=== PATIENT | female | born 1950 | race Caucasian/White ===

== ENCOUNTER 2024-04-27 09:00 | Emergency (ER) | payer MEDICARE, OTHER ==
[~2024-04-27] VITALS: Ht 170.2 cm; Wt 64.9 kg
[~2024-04-27 09:00] MED LIST: LEVSOD100 PO
[2024-04-27 09:57] VITALS: BP 156/80
== END 2024-04-27 12:16 | disposition home or self-care (01) ==
LOC: ER 09:00
DX: S52.501A Unspecified fracture of the lower end of right radius, initial encounter for closed fracture (principal); S52.611A Displaced fracture of right ulna styloid process, initial encounter for closed fracture; W18.30XA Fall on same level, unspecified, initial encounter
CPT/HCPCS: 73130

== ENCOUNTER 2024-05-02 08:51 | Day surgery (SDC) | payer MEDICARE ==
[2024-05-02] VITALS (10 sets, daily range): BP systolic 128–178; BP diastolic 72–98
[~2024-05-02] VITALS: Ht 170.2 cm; Wt 64.1 kg
[~2024-05-02 08:51] MED LIST changes: +BETASEPT118 M1; +Calcium Acetat667 MG; +CeFAZolin Sodium 2,000 MG in NS 100 ML IV SCH; +ERGO400; +Lactated Ringer's 1,000 ML IV SCH; +[UNRECOGNIZED DRUG - OTHER]
[2024-05-02] MEDS ORDERED: FentaNYL Citrate 50 MCG/ML 2 ML Injection ONE (09:48)
[2024-05-02] MEDS ORDERED: Midazolam HCl 1MG / ML 2ML Vial ONE (09:48)
[2024-05-02] MEDS ORDERED: propofoL 60 ML IV ONE (10:25)
[2024-05-02] MEDS ORDERED: ePHEDrine Sulfate 50 MG/ML 1ML Injection ONE (10:37)
[2024-05-02] MEDS ORDERED: propofoL 20 ML IV ONE (11:15)
[2024-05-02] MEDS ORDERED: Ondansetron HCl 2 MG / ML 2ML Vial ONE (11:16)
[2024-05-02] MEDS ORDERED: Dexamethasone Sod Phos 10 MG/ML 1ML VIAL ONE (11:16)
[2024-05-02] MEDS ORDERED: OxyCODONE 5 mg/Acetamin 325 mg TABLET PO PRN (12:00)
--- NOTE | 2024-05-02 12:09 | NUR ---
PT TO DAY SURGERY FROM PACU; BEDSIDE REPORT RECEIVED. PT HAS ORIF OF RIGHT DISTAL RADIUS. PT HAS KRISHNA WRAP TO RIGHT WRIST/FOREARM THAT IS C/D/I. PT VSS, BP IS ELEVATED AND HAS BEEN SINCE ARRIVAL; PT PLANS TO DISCUSS THIS WITH HER PCP. PT ABLE TO MOVE FINGERS ON RIGHT HAND SLIGHTLT, FINGERS ARE PINK WARM AND DRY WITH CAP REFIL < 3 SECONDS. PT DENIES PAIN AND HAS NO COMPLAINTS AT THIS TIME.
--- NOTE | 2024-05-02 13:08 | NUR ---
DISCHARGE Patient up to Ambulate independently. Gait SLOW BUT steady. Discharge instructions reviewed with patient. Patient verbalizes understanding. Copy given to patient to take home, WELL FAMILY. Patient States Post-Procedure ride home has been arranged. Discharged via wheelchair to private car for ride home. PT BELONGINGS SENT WITH PT. PT ASSISTED WITH SLING. PT SENT WITH DRESSING SUPPLIES, ICE PACK. PT REPORTS READY TO GO HOME, THAT SHE WILL BE STAYING WITH HER FAMILY. PT REPORTS NOT HAVING PAIN MEDICATION AT HOME. DR NICHOLSON NOTIFIED WHO REPORTED THAT HE WILL SEND IT ELECTONICALLY TO HER PHARMACY WHICH SHE STATED WAS [facility] WHILE DR NICHOLSON WAS ON THE PHONE.
== END 2024-05-02 13:08 | disposition home or self-care (01) ==
LOC: ORSCMMR 08:51 → ORD 10:30 → ORSCMMR 10:30
PROVIDERS: Orthopaedic Surgery
PROC: 0PSJ04Z Reposition Left Radius with Internal Fixation Device, Open Approach (ICD-10-PCS; principal; 2024-05-02 10:30)
DX: S52.572A Other intraarticular fracture of lower end of left radius, initial encounter for closed fracture (principal); W18.30XA Fall on same level, unspecified, initial encounter; E03.9 Hypothyroidism, unspecified; Z79.899 Other long term (current) drug therapy
CPT/HCPCS: C1713; J0690; J1100; J2250; J2405; J2704; J3010; J7120